=== PATIENT | female | born 1980 | race Caucasian/White ===

== ENCOUNTER 2016-12-24 12:01 | Emergency (ER) | payer OTHER, SELFPAY ==
[2016-12-24] MEDS ORDERED: HYDROcodone/Acetaminophen 10/325 mg Tablet ONE (12:29)
[2016-12-24] MEDS ORDERED: Naproxen 500 MG TAB ONE (12:30)
--- NOTE | 2016-12-24 12:47 | RAD ---
LEFT ANKLE RADIOGRAPHS THREE VIEWS 12/24/2016 PROVIDED CLINICAL HISTORY: Left ankle pain, status post injury. FINDINGS: No evidence for fracture or other acute osseous abnormality. If there is persistent clinical concer n, conservative management and follow-up imaging are advised. IMPRESSION: As above. POS: [facility]
== END 2016-12-24 13:13 | disposition home or self-care (01) ==
LOC: MADERS 12:01
DX: S93.402A Sprain of unspecified ligament of left ankle, initial encounter (principal); F17.210 Nicotine dependence, cigarettes, uncomplicated; X58.XXXA Exposure to other specified factors, initial encounter

== ENCOUNTER 2018-03-05 23:04 | Emergency (ER) | payer OTHER, SELFPAY ==
--- NOTE | 2018-03-05 23:31 | RAD ---
LEFT WRIST: 03/05/18 Three views. HISTORY: Wrist pain. There has been prior internal fixation of the distal radius with plate and screws. Deformity of the u lnar styloid from old fracture. Narrowing of the radiocarpal joint. Mild degenerative changes of the first carpometacarpal joint. No evidence of acute fracture identified. IMPRESSION: Postoperative and degenerative changes are noted. No acute fracture. POS: [facility]
[2018-03-05] MEDS ORDERED: Naproxen 500 MG TAB ONE (23:35)
[2018-03-05] MEDS ORDERED: HYDROcodone/Acetaminophen 10/325 mg Tablet ONE (23:35)
== END 2018-03-05 23:56 | disposition home or self-care (01) ==
LOC: MADERS 23:04
DX: S63.502A Unspecified sprain of left wrist, initial encounter (principal); F17.210 Nicotine dependence, cigarettes, uncomplicated; W22.8XXA Striking against or struck by other objects, initial encounter

== ENCOUNTER 2019-11-15 07:22 | Emergency (ER) | payer SELFPAY ==
[2019-11-15] MEDS ORDERED: Ketorolac Tromethamine 30 MG/ML VIAL ONE (07:47)
[2019-11-15] MEDS ORDERED: Ondansetron ODT 4 MG TAB ONE (07:47)
== END 2019-11-15 08:15 | disposition home or self-care (01) ==
LOC: MADERS 07:22
DX: S39.012A Strain of muscle, fascia and tendon of lower back, initial encounter (principal); F41.9 Anxiety disorder, unspecified; F32.9 Major depressive disorder, single episode, unspecified; F17.210 Nicotine dependence, cigarettes, uncomplicated; X50.1XXA Overexertion from prolonged static or awkward postures, initial encounter
CPT/HCPCS: 96372; 99283; J1885; Q0162

== ENCOUNTER 2020-01-02 15:17 | Emergency (ER) | payer SELFPAY ==
[2020-01-02] MEDS ORDERED: Ketorolac Tromethamine 60 MG/2 ML VIAL ONE (15:50)
== END 2020-01-02 16:20 | disposition home or self-care (01) ==
LOC: MADERS 15:17
DX: G44.209 Tension-type headache, unspecified, not intractable (principal); M62.838 Other muscle spasm; F41.9 Anxiety disorder, unspecified; F32.9 Major depressive disorder, single episode, unspecified; F17.210 Nicotine dependence, cigarettes, uncomplicated; Z71.6 Tobacco abuse counseling
CPT/HCPCS: 96372; 99406; J1885

== ENCOUNTER 2020-04-21 10:46 | Emergency (ER) | payer SELFPAY ==
[2020-04-21] MEDS ORDERED: Lidocaine 1% w/Epinephrine 1:100K 20 ML VIAL ONE (11:21)
--- NOTE | 2020-04-21 12:39 | RAD ---
CHEST 1 VIEW AND ABDOMEN 2 VIEWS: Date: 04/21/2020 HISTORY: Abdominal pain. FINDINGS/IMPRESSION: The heart size is normal. The lungs are clear. No free air or differential fluid levels are seen. The re is a calcific density in the right upper quadrant suspicious for a 2.3 cm gallstone. Further evalu ation with gallbladder ultrasound would be helpful. POS: [facility]
== END 2020-04-21 13:00 | disposition short-term general hospital (02) ==
LOC: MADERS 10:46
DX: S31.41XA Laceration without foreign body of vagina and vulva, initial encounter (principal); F17.210 Nicotine dependence, cigarettes, uncomplicated; X58.XXXA Exposure to other specified factors, initial encounter
CPT/HCPCS: 74022; 96372

== ENCOUNTER 2020-07-12 13:43 | Emergency (ER) | payer OTHER, SELFPAY ==
--- NOTE | 2020-07-12 15:17 | RAD ---
Chest AP view INDICATION: Cough COMPARISON: Chest radiograph dated June 29, 2003 and a acute abdominal series dated April 21 0 FINDINGS: Lungs: The lungs are clear Cardiac silhouette: The cardiomediastinal silhouette appears within normal limits. Pulmonary vasculature: Normal Pleural spaces: No pleural effusion or pneumothorax is demonstrated. Upper abdomen: No abnormality seen. Osseous structures: No acute osseous abnormality. Additional findings: None. IMPRESSION: No acute cardiopulmonary abnormality.
[2020-07-13 12:32] LABS: SARS-CoV-2 MS2 Positive; SARS-CoV-2 N Gene Negative; SARS-CoV-2 S Gene Negative; SARS-CoV-2 by NAA Not Detected (NotDetected); SARS-CoV-2 orf1ab Negative
== END 2020-07-12 15:44 | disposition home or self-care (01) ==
LOC: MADERS 13:43
DX: J40 Bronchitis, not specified as acute or chronic (principal); Z20.828 Contact with and (suspected) exposure to other viral communicable diseases; F41.9 Anxiety disorder, unspecified; F32.9 Major depressive disorder, single episode, unspecified; F17.210 Nicotine dependence, cigarettes, uncomplicated
CPT/HCPCS: 71045; 87635; U0003

== ENCOUNTER 2021-10-28 07:38 | Emergency (ER) | payer OTHER ==
[2021-10-29 12:47] LABS: SARS-CoV-2 PCR by NAA DETECTED (NotDetected)
== END 2021-10-28 09:12 | disposition home or self-care (01) ==
LOC: MADERS 07:38
DX: U07.1 COVID-19 (principal); J44.1 Chronic obstructive pulmonary disease with (acute) exacerbation; F17.210 Nicotine dependence, cigarettes, uncomplicated
CPT/HCPCS: 99284; U0003; U0005

== ENCOUNTER 2021-11-24 18:23 | Emergency (ER) | payer OTHER ==
[2021-11-24] MEDS ORDERED: Naproxen 500 MG TAB ONE (19:50)
[2021-11-24] MEDS ORDERED: Cephalexin 250 MG CAP ONE (19:50)
[2021-11-25 21:44] LABS: SARS-CoV-2 PCR by NAA Not Detected (NotDetected)
== END 2021-11-24 20:14 | disposition home or self-care (01) ==
LOC: MADERS 18:23
DX: L03.211 Cellulitis of face (principal); J06.9 Acute upper respiratory infection, unspecified; Z20.822 Contact with and (suspected) exposure to COVID-19; Z87.891 Personal history of nicotine dependence
CPT/HCPCS: 99283; U0003; U0005

== ENCOUNTER 2021-11-26 14:05 | Emergency (ER) | payer OTHER ==
[~2021-11-26 14:05] MED LIST: Iopamidol 370 76% 100 ML VIAL ONE
[2021-11-26 14:47] LABS: #Basophils 0.1 thou/uL (0.0-0.2); #Eosinphils 0.5 thou/uL (0.0-0.7); #Lymphocytes 2.4 thou/uL (1.20-3.40); #Monocytes 0.7 thou/uL (0.11-0.59); #Neutrophils 7.6 thou/uL (1.40-6.50); %Basophils 0.8 % (0.0-1.0); %Eosinophils 4.2 % (0.0-10.0); %Lymphocytes 21.1 % (21.0-51.0); %Monocytes 5.8 % (0.0-10.0); %Neutrophils 68.1 % (42.0-75.0); Hemoglobin 13.3 g/dL (12.0-16.0); Mean Corpuscular Hemoglobin 25.4 pg (27.0-31.0); Mean Corpuscular Volume 79.4 fL (78.0-98.0); Mean Platelet Volume 6.3 fL (7.4-10.4); Platelet Count 464 thou/uL (130-400); RBC Distribution Width 14.2 % (11.5-14.5); Red Blood Cell (RBC) Count 5.24 mill/uL (4.20-5.40); White Blood Cell (WBC) Count 11.1 thou/uL (4.8-10.8)
[2021-11-26 15:09] LABS: ALT (SGPT) 8 U/L (8-55); AST (SGOT) 13 U/L (5-34); Albumin 3.3 g/dL (3.5-5.0); Alkaline Phosphatase 118 U/L (40-110); Anion Gap 14 mmol/L (10-20); BUN (Urea Nitrogen) 8 mg/dL (7.0-18.7); Bilirubin, Total 0.2 mg/dL (0.2-1.2); Calc. Creatinine Clearance 0 mL/min (70-130); Calcium 9.1 mg/dL (7.8-10.44); Carbon Dioxide 21 mmol/L (22-29); Chloride 107 mmol/L (98-107); Globulin 3.9 g/dL (2.4-3.5); Glucose 122 mg/dL (70-105); Potassium 3.5 mmol/L (3.5-5.1); Protein, Total 7.2 g/dL (6.0-8.3); Sodium 138 mmol/L (136-145)
[2021-11-26] MEDS ORDERED: Amoxicillin/Potassium Clav 875 MG TAB ONE (16:32)
== END 2021-11-26 16:40 | disposition home or self-care (01) ==
LOC: MADERS 14:05
DX: K04.7 Periapical abscess without sinus (principal); N83.209 Unspecified ovarian cyst, unspecified side; Z87.891 Personal history of nicotine dependence; Z79.899 Other long term (current) drug therapy
CPT/HCPCS: 36415; 70487; 80053; 85025; Q9967

== ENCOUNTER 2022-06-25 10:08 | Emergency (ER) | payer OTHER ==
[~2022-06-25 10:08] MED LIST changes: +Lactated Ringer's 1,000 ML BAG ONE
[2022-06-25 11:45] LABS: ALT (SGPT) 263 U/L (8-55); AST (SGOT) 315 U/L (5-34); Albumin 2.8 g/dL (3.5-5.0); Alkaline Phosphatase 117 U/L (40-110); Anion Gap 15 mmol/L (10-20); BUN (Urea Nitrogen) 28 mg/dL (7.0-18.7); Bilirubin, Total 1.5 mg/dL (0.2-1.2); Calc. Creatinine Clearance 0 mL/min (70-130); Calcium 7.6 mg/dL (7.8-10.44); Carbon Dioxide 23 mmol/L (22-29); Chloride 101 mmol/L (98-107); Estimated GFR 49; Globulin 3.3 g/dL (2.4-3.5); Glucose 84 mg/dL (70-105); Lipase 6 U/L (8-78); Magnesium 1.2 mg/dL (1.6-2.6); Potassium 3.5 mmol/L (3.5-5.1); Protein, Total 6.1 g/dL (6.0-8.3); Sodium 135 mmol/L (136-145)
[2022-06-25] MEDS ORDERED: Morphine 4 MG/ML VIAL ONE (11:46)
[2022-06-25] MEDS ORDERED: Dicyclomine 20 MG/2 ML VIAL ONE (11:47)
[2022-06-25] MEDS ORDERED: Lactated Ringer's 1,000 ML ONE (11:47)
[2022-06-25] MEDS ORDERED: Promethazine HCl 25 MG/ML VIAL ONE (11:47)
[2022-06-25 11:53] LABS: Band 7 % (5-11); Hemoglobin 13.3 g/dL (12.0-16.0); Large Platelets SLIGHT; MDiff Complete? YES; Mean Corpuscular HGB CONC 31.3 g/dL (32.0-36.0); Mean Corpuscular Hemoglobin 25.6 pg (27.0-31.0); Mean Corpuscular Volume 81.6 fL (78.0-98.0); Mean Platelet Volume 10.8 fL (7.4-10.4); Monocytes 2 % (0-10); Neutrophil 90 % (42-75); Platelet Count 104 thou/uL (130-400); Platelet Morphology Comment Appears Decreased; RBC Distribution Width 13.4 % (11.5-14.5); RBC Morphology Normal; Reactive Lymphocytes 1 % (0-10); Red Blood Cell (RBC) Count 5.21 mill/uL (4.20-5.40); White Blood Cell (WBC) Count 37.4 thou/uL (4.8-10.8)
[2022-06-25] MEDS ORDERED: Sodium Chloride 0.9% 100 ML ONE (12:17)
[2022-06-25] MEDS ORDERED: Cefepime 2 GM VIAL ONE (12:17)
[2022-06-25 12:50] LABS: Bilirubin Negative (Negative); Blood, Urine Moderate (Negative); Clarity Clear (Clear); Glucose, Urine (Dipstick) Negative (Negative); Ketone, Urine Negative (Negative); Leukocyte Small (Negative); Nitrite Negative (Negative); Protein, Urine (Dipstick) Negative (Neg-Trace); pH, Urine 5.5 (5.0-9.0)
[2022-06-25 12:51] LABS: Pregnancy Test - Urine (BHCG) Negative (Negative); Pregu Control Background? CLEAR/WHITE (CLR/WHITE); Pregu Control Bar Appear? YES (CONTROL BAR)
[2022-06-25 12:55] LABS: Bacteria/HPF 1+ HPF (None Seen); Squamous Epithelial 0-3 HPF (0-3)
[2022-06-25 12:58] LABS: SARS-CoV-2 NAA Rapid Test Not Detected (NotDetected)
[2022-06-25] MEDS ORDERED: Magnesium 2 GM/50 ML BAG (IN WATER) ONE (13:15)
[2022-06-25 14:16] LABS: INR-International Normal Ratio 1.6; Prothrombin Time 19.3 sec (12.0-14.7)
[2022-06-25 14:17] LABS: PTT 47.6 sec (22.9-36.1)
[2022-06-25 14:42] LABS: Lactic Acid 4.3 mmol/L (0.5-2.2)
[2022-06-25] MEDS ORDERED: metroNIDAZOLE 500 MG/100 ML BAG ONE (14:47)
[2022-06-25] MEDS ORDERED: Sodium Chloride 0.9% 250 ML 500 ML ONE (14:47)
[2022-06-25 14:59] LABS: CKMB 1.6 ng/mL (0-6.6)
[2022-06-25] MEDS ORDERED: Aspirin Chewable 81 MG TAB ONE (16:23)
== END 2022-06-25 18:30 | disposition short-term general hospital (02) ==
LOC: MADERS 10:08
DX: A41.9 Sepsis, unspecified organism (principal); N12 Tubulo-interstitial nephritis, not specified as acute or chronic; I10 Essential (primary) hypertension; R77.8 Other specified abnormalities of plasma proteins; R74.01 Elevation of levels of liver transaminase levels; E83.42 Hypomagnesemia; Z20.822 Contact with and (suspected) exposure to COVID-19; Z87.891 Personal history of nicotine dependence
CPT/HCPCS: 36415; 71045; 74177; 80053; 81003; 81015; 81025; 82553; 83605; 83690; 83735; 84484; 85025; 85610; 85730; 87040; 87077; 87149; 87186; 93005; 94760; 96365; 96366; 96367; 96368; 96372; 96375; J0692; J2270; J2550; J3370; J3475; J3490; J7050; J7120; Q9967

== ENCOUNTER 2022-10-23 15:37 | Emergency (ER) | payer SELFPAY | END 2022-10-23 16:06 | disposition home or self-care (01) | LOC: MADERS 15:37 | DX: K08.89 Other specified disorders of teeth and supporting structures (principal); R22.0 Localized swelling, mass and lump, head; I10 Essential (primary) hypertension; Z20.822 Contact with and (suspected) exposure to COVID-19; Z87.891 Personal history of nicotine dependence | CPT/HCPCS: 99283; U0003; U0005 ==

== ENCOUNTER 2022-11-29 14:14 | Emergency (ER) | payer OTHER ==
[~2022-11-29 14:14] MED LIST changes: -Iopamidol 370 76% 100 ML VIAL ONE; -Lactated Ringer's 1,000 ML BAG ONE; +Sodium Chloride 0.9% 100 ML BAG ONE
[2022-11-29 15:25] LABS: Bilirubin Negative (Negative); Blood, Urine Moderate (Negative); Glucose, Urine (Dipstick) Negative (Negative); Ketone, Urine Trace mg/dL (Negative); Leukocyte Trace (Negative); Nitrite Negative (Negative); Protein, Urine (Dipstick) Negative (Neg-Trace); Urobilinogen 0.2 mg/dL (Less than 2)
[2022-11-29 15:29] LABS: Clarity Hazy (Clear); Specific Gravity, Urine 1.027 (1.002-1.036)
[2022-11-29 15:30] LABS: Pregnancy Test - Urine (BHCG) Negative (Negative); Pregu Control Background? CLEAR/WHITE (CLR/WHITE); Pregu Control Bar Appear? YES (CONTROL BAR); Specific Gravity 1.027 (1.002-1.036)
[2022-11-29 15:40] LABS: WBC/HPF Greater Than 50 HPF (0-3)
[2022-11-29 15:41] LABS: Bacteria/HPF Rare-Few HPF (None Seen); Mucous/LPF 1+ LPF (<2+)
[2022-11-29 16:02] LABS: #Basophils 0.1 thou/uL (0.0-0.2); #Eosinphils 0.3 thou/uL (0.0-0.7); #Lymphocytes 3.2 thou/uL (1.20-3.40); #Monocytes 0.9 thou/uL (0.11-0.59); #Neutrophils 7.8 thou/uL (1.40-6.50); %Basophils 0.7 % (0.0-1.0); %Eosinophils 2.8 % (0.0-10.0); %Lymphocytes 25.9 % (21.0-51.0); %Monocytes 7.4 % (0.0-10.0); %Neutrophils 63.2 % (42.0-75.0); Hemoglobin 15.7 g/dL (12.0-16.0); Mean Corpuscular HGB CONC 33.3 g/dL (32.0-36.0); Mean Corpuscular Hemoglobin 26.9 pg (27.0-31.0); Mean Corpuscular Volume 80.6 fl (78.0-98.0); Platelet Count 494 10x3/uL (130-400); RBC Distribution Width 12.8 % (11.5-14.5); Red Blood Cell (RBC) Count 5.84 mill/uL (4.20-5.40); White Blood Cell (WBC) Count 12.3 10x3/uL (4.8-10.8)
[2022-11-29 16:20] LABS: ALT (SGPT) 17 U/L (8-55); AST (SGOT) 18 U/L (5-34); Albumin 3.9 g/dL (3.5-5.0); Alkaline Phosphatase 200 U/L (40-110); Anion Gap 15 mmol/L (10-20); BUN (Urea Nitrogen) 13 mg/dL (7.0-18.7); Bilirubin, Total Less than 0.2 mg/dL (0.2-1.2); Calc. Creatinine Clearance 0 mL/min (70-130); Calcium 9.4 mg/dL (7.8-10.44); Carbon Dioxide 19 mmol/L (22-29); Chloride 110 mmol/L (98-107); Estimated GFR 90; Globulin 4.1 g/dL (2.4-3.5); Glucose 109 mg/dL (70-105); Lipase 30 U/L (8-78); Potassium 4.3 mmol/L (3.5-5.1); Sodium 140 mmol/L (136-145)
[2022-11-29] MEDS ORDERED: cefTRIAXone\\ROCEPHIN 1 GM VIAL ONE (18:27)
[2022-11-29] MEDS ORDERED: Sodium Chloride 0.9% 1,000 ML ONE (18:27)
== END 2022-11-29 19:59 | disposition home or self-care (01) ==
LOC: MADERS 14:14
DX: N39.0 Urinary tract infection, site not specified (principal); D72.829 Elevated white blood cell count, unspecified; I10 Essential (primary) hypertension; F17.290 Nicotine dependence, other tobacco product, uncomplicated
CPT/HCPCS: 36415; 74176; 80053; 81003; 81015; 81025; 83605; 83690; 85025; 87077; 87086; 87186; 96365; J0696; J3490; J7050

== ENCOUNTER 2024-03-22 21:38 | Emergency (ER) | payer SELFPAY | END 2024-03-23 01:37 | disposition left against medical advice (07) | LOC: MADERS 21:38 | DX: Z53.21 Procedure and treatment not carried out due to patient leaving prior to being seen by health care provider (principal) ==